=== PATIENT | male | born 1960 | race Caucasian/White ===

== ENCOUNTER 2023-03-25 09:15 | Emergency (ER) | payer MEDICAID ==
[~2023-03-25] VITALS: Ht 167.6 cm; Wt 54.4 kg
[2023-03-25 09:24] VITALS: BP 132/80; PULSE 87; RESP 16; TEMP 98; O2SAT 99
[2023-03-25] MEDS ORDERED: OMEP40EC24 PO (10:41)
== END 2023-03-25 10:56 | disposition home or self-care (01) ==
LOC: MED 09:15
DX: K29.70 Gastritis, unspecified, without bleeding (principal); K21.9 Gastro-esophageal reflux disease without esophagitis; Z79.899 Other long term (current) drug therapy
CPT/HCPCS: 99282